=== PATIENT | male | born 1935 | race Caucasian/White ===

== ENCOUNTER 2016-07-14 10:51 | Observation (INO) | payer OTHER ==
[2016-07-14] MEDS ORDERED: diphenhydrAMINE 25 MG CAP PO ONE (11:16)
[2016-07-14] MEDS ORDERED: BACITRACIN IRRIGATION/NS 50,000 UNITS/1,000 ML BTL IRR ONE (11:16)
[2016-07-14] MEDS ORDERED: NS 1,000 ML IV ONE (11:16)
[2016-07-14] MEDS ORDERED: DIAZEPAM 5 MG TAB PO ONE (11:16)
[2016-07-14] MEDS ORDERED: ceFAZolin 2 GM/DEXTROSE 100 ML IV ONE (11:16)
--- NOTE | 2016-07-14 11:26 | CPEKG ---
Heart Rate: 49 RR Interval: 1224 P-R Interval: 180 QRSD Interval: 102 QT Interval: 456 QTC Interval: 412 P [place]: 55 QRS [place]: 36 T Wave [place]: 35 EKG Severity - ABNORMAL ECG - EKG Impression: SINUS BRADYCARDIA EKG Impression: ATRIAL PREMATURE COMPLEX EKG Impression: PROBABLE POSTERIOR INFARCT Electronically Signed By: Catherine Soliz 14-Jul-2016 16:39:02
[2016-07-14 11:44] LABS: % IMMATURE GRANULYOCYTES 0.3 % (0.0-1.1); ABSOLUTE IMMATURE GRANULOCYTES 0.02 10^3/uL (0.00-0.10); ADD DIFF? NO; ADD MORPH? NO; ADD SCAN? NO; ATYPICAL LYMPHOCYTE FLAG 0 (0-99); FRAGMENT RBC FLAG 0 (0-99); HEMATOCRIT 49.4 % (40.0-51.0); LEFT SHIFT FLG 0 (0-99); LIPEMIA HEMOLYSIS FLAG 90 (0-99); MEAN CELL HEMOGLOBIN 33.7 pg (27.9-34.1); MEAN CELL HEMOGLOBIN CONCENTR. 34.4 g/dL (32.4-36.7); MEAN CELL VOLUME 97.8 fL (81.5-99.8); MEAN PLATELET VOLUME 10.9 fL (8.7-11.7); PLATELET CLUMPS FLAG 0 (0-99); PLATELET COUNT 129 10^3/uL (150-400); RED BLOOD CELL COUNT 5.05 10^6/uL (4.40-6.38); RED CELL DISTRIBUTION WIDTH 13.1 % (11.5-15.2)
[2016-07-14] MEDS ORDERED: fentaNYL 100 MCG/2 ML INJ ONE ×2 (11:49→14:10)
[2016-07-14] MEDS ORDERED: IOPAMIDOL (ISOVUE-300) 100 ML BTL ONE ×2 (11:49→13:08)
[2016-07-14] MEDS ORDERED: LIDOCAINE 1% 30 ML SDV ONE ×2 (11:49→14:13)
[2016-07-14] MEDS ORDERED: BUPIVACAINE 0.5% 30 ML SDV ONE ×2 (11:49→14:13)
[2016-07-14] MEDS ORDERED: MIDAZOLAM 2 MG/2 ML VIAL ONE ×3 (11:49→13:45)
[2016-07-14 11:59] LABS: INR 0.96 (0.83-1.16); PROTIME(PATIENT) 12.7 SEC (12.0-15.0)
[2016-07-14 12:03] LABS: ANION GAP 9 mEq/L (8-16); CALCIUM 9.4 mg/dL (8.5-10.4); CARBON DIOXIDE 27 mEq/l (22-31); CHLORIDE 108 mEq/L (97-110); CREATININE 0.7 mg/dL (0.7-1.3); GLOMERULAR FILTRATION RATE > 60; GLUCOSE 101 mg/dL (70-100); POTASSIUM 3.9 mEq/L (3.5-5.2); SODIUM 144 mEq/L (134-144)
[2016-07-14] MEDS ORDERED: HYDROCODONE/APAP 5/325 TAB PO PRN (15:25)
[2016-07-14] MEDS ORDERED: NON-FORMULARY NEW DRUG (Ranitidine Hcl [Zantac] 150 MG) PO PRN (15:25)
[2016-07-14] MEDS ORDERED: ONDANSETRON 4 MG/2 ML VIAL ONE (15:28)
[2016-07-14] MEDS ORDERED: FAMOTIDINE 20 MG/NACL/50 ML BAG IV ONE (15:35)
--- NOTE | 2016-07-14 15:50 | CPEKG ---
Heart Rate: 60 RR Interval: 1000 P-R Interval: 136 QRSD Interval: 96 QT Interval: 456 QTC Interval: 456 QRS [place]: 45 T Wave [place]: 20 EKG Severity - ABNORMAL ECG - EKG Impression: ATRIAL-PACED RHYTHM EKG Impression: COMPARED WITH 07/14/2016 AT 11:24 A.M., ATRIAL PACING NOW SEEN Electronically Signed By: Catherine Soliz 14-Jul-2016 16:38:48
[2016-07-14] MEDS ORDERED: FAMOTIDINE 20 MG/NACL 50 ML IV ONE (16:00)
[2016-07-14] MEDS ORDERED: FAMOTIDINE 20 MG TAB PO PRN (18:11)
[2016-07-14] MEDS ORDERED: LATANOPROST 0.005% 2.5 ML OPHT DROPS EACHEYE SCH (21:00)
[2016-07-15 06:16] LABS: % IMMATURE GRANULYOCYTES 0.1 % (0.0-1.1); ABSOLUTE IMMATURE GRANULOCYTES 0.01 10^3/uL (0.00-0.10); ADD DIFF? NO; ADD MORPH? NO; ADD SCAN? NO; ATYPICAL LYMPHOCYTE FLAG 0 (0-99); FRAGMENT RBC FLAG 0 (0-99); HEMATOCRIT 45.8 % (40.0-51.0); HEMOGLOBIN 15.2 g/dL (13.7-17.5); LEFT SHIFT FLG 0 (0-99); LIPEMIA HEMOLYSIS FLAG 80 (0-99); MEAN CELL HEMOGLOBIN 33.5 pg (27.9-34.1); MEAN CELL HEMOGLOBIN CONCENTR. 33.2 g/dL (32.4-36.7); MEAN CELL VOLUME 100.9 fL (81.5-99.8); MEAN PLATELET VOLUME 10.6 fL (8.7-11.7); PLATELET CLUMPS FLAG 0 (0-99); PLATELET COUNT 119 10^3/uL (150-400); RED BLOOD CELL COUNT 4.54 10^6/uL (4.40-6.38)
[2016-07-15 06:30] LABS: ANION GAP 7 mEq/L (8-16); CALCIUM 9.1 mg/dL (8.5-10.4); CARBON DIOXIDE 26 mEq/l (22-31); CHLORIDE 109 mEq/L (97-110); CREATININE 0.6 mg/dL (0.7-1.3); GLOMERULAR FILTRATION RATE > 60; GLUCOSE 70 mg/dL (70-100); POTASSIUM 4.1 mEq/L (3.5-5.2); SODIUM 142 mEq/L (134-144)
[2016-07-15 08:14] VITALS: BP 141/72; PULSE 61; RESP 20; TEMP 97.9; O2SAT 93
[2016-07-15] MEDS ORDERED: HEPARIN/DEXTROSE 25,000 UNIT/500 ML BAG ONE (08:57)
[2016-07-15] MEDS ORDERED: ROSUVASTATIN CALCIUM 40 MG TAB PO SCH (09:00)
[2016-07-15] MEDS ORDERED: LOSARTAN POTASSIUM 50 MG TAB PO SCH (09:00)
[2016-07-15] MEDS ORDERED: ASPIRIN 325 MG TAB PO SCH (09:00)
[2016-07-15] MEDS ORDERED: NON-FORMULARY NEW DRUG (Losartan/Hydrochlorothiazide [Hyzaar 100-12.5 Tablet] 1 EACH) PO SCH (09:00)
[2016-07-15] MEDS ORDERED: HYDROCHLOROTHIAZIDE 12.5 MG CAP PO SCH (09:00)
[2016-07-15] MEDS ORDERED: amLODIPine BESYLATE 5 MG TAB PO SCH (09:00)
--- NOTE | 2016-07-15 09:08 | CPEKG ---
Heart Rate: 60 RR Interval: 1000 P-R Interval: 148 QRSD Interval: 94 QT Interval: 412 QTC Interval: 412 QRS [place]: 38 T Wave [place]: 34 EKG Severity - ABNORMAL ECG - EKG Impression: SINUS RHYTHM VERSES ATRIAL PACING. PACEMAKER SPIKES ARE DIFFICULT TO DISCERN. EKG Impression: DIFFUSE NONSPECIFIC ST ABNORMALITIES Electronically Signed By: Catherine Soliz 15-Jul-2016 09:57:13
--- NOTE | 2016-07-15 13:40 | EPPROC ---
Electrophysiology Procedure Note: Procedure done 07/14/2016 PROCEDURE PERFORMED: 1. Implantation of an A/V Pacemaker 2. Subclavian vein angiography 3. Fluoroscopy INDICATION: Chronotropic incompetence, Bradycardia, Fatigue. PROCEDURE NOTE: Patient presented to the cardiac catheterization laboratory in a fasting, post absorptive state . EP RN administered sedation. The left infraclavicular area was prepped and draped in the usual sterile fashion. Lidocaine plus bupivacaine was used for local anesthesia. Left subclavian venography was performed by injection of iodinated contrast into the left antecubital vein. This was done to assure patency of the vein and also to assess for any anatomical aberrations. Using a combination of blunt and sharp dissection and electrocautery, the dissection was carried down to the prepectoral fascia. A pocket was made in this anatomical plane. All bleeding was controlled with electrocautery. The pocket was packed with gauze soaked in antibiotic solution. Fluoroscopy was utilized during the entire procedure for venous access and placement of the leads. Using a direct stick technique the left extrathoracic axillary vein was attempted to be accessed. The first puncture was to the artery. Manual pressure was held. After this we were not able to access the vein. Subclavian angiogram x 3 showed the vein was occluded, likely related to an arterial hematoma. I asked my partner Dr. Horne to scrub in and do a cephalic vein cutdown, this was attempted but unsuccessful. At this point, we decided to place pacemaker on the right side. Right subclavian venography was performed by injection of iodinated contrast into the right antecubital vein. Right extrathoracic axillary vein was accessed with 2 sticks using the modified Seldinger technique. Placement of the guidewires into the venous system was confirmed by low-pressure blood return and also by visualizing the guidewires advancing into the inferior vena cava. A purse string suture was applied around the guidewires. Two #7 Lebanese sheaths were advanced under fluoroscopic guidance over the guidewire. An active fixation ventricular lead was advanced into the right ventricular apex and screwed in place. An active fixation atrial lead was advanced into the right atrial appendage and screwed in place. The peel away sheaths were removed. Pacing thresholds, sensing parameters and lead impedances were measured. There was no diaphragmatic stimulation at maximum output. The leads were sutured to the prepectoral fascia with 3 nonabsorbable sutures each. The pocket was again inspected for any bleeding. The leads were attached to the pacemaker securely. The pacemaker was inserted into the pocket and secured in place with a nonabsorbable suture. Fluoroscopy was performed in VINSON and OCCITAN planes to verify right-sided placement of the leads. Also fluoroscopy of the pacemaker pocket was performed. The pacemaker pocket was closed in 3 layers with absorbable monocryl sutures and milton. Appropriate dressing was applied. The patient left the cardiac catheterization laboratory in stable condition. Serial Numbers: 1. Device: Tiger Pistolronik Eluna ProMRI [id number] 2. Atrial Lead: Biotronik Solia S45 SN [id number] 3. Ventricular Lead: Biotronik Solia S53 SN [id number] Stimulation Thresholds & Impedance Measurements: 1. Atrial Lead 0.6 V 0.4 ms P 2.3 mV 529 ohm 2. Ventricular Lead 0.8 V 0.4 ms R 10.7V 702 ohm Juanito Pacing Parameters 1. Pacing mode: DDDR 2. Lower rate: 60 ppm 3. Upper tracking rate: 110 ppm 4. Upper sensor rate: 110 ppm Patient Problems: Problems Problem Status Onset Bradycardia Acute
--- NOTE | 2016-07-15 15:20 | GDS ---
[f rep st] DISCHARGE SUMMARY DISCHARGE DIAGNOSES: 1. 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 2. History of coronary artery disease. Status post multivessel stenting in 2016. 3. Sleep apnea. 4. Hypertension. 5. Dyslipidemia. 6. Diabetes. 7. Previous tobacco abuse. PROCEDURES: 1. 07/14/2016, implantation of a Biotronik AV pacemaker. 2. Serial chest x-rays. HISTORY OF PRESENT ILLNESS: Please see dictated H and P by Dr. Pham for complete details. In brief, the patient is an 81-year-old male who was diagnosed with chronotropic incompetence. He had inabil ity to mount a heart rate response to exertion, despite being off any AV christopher agents. Given his sy mptoms, he met criteria for dual-chamber pacemaker implantation. This was done on 07/14/2016. HOSPITAL COURSE BY PROBLEM: 1. Sick sinus syndrome, status post permanent pacemaker implantation. Discharge instructions given on arm precautions, as well as followup appointments. 2. CAD. His home medications were continued. 3. Pain related to permanent pacemaker implantation. A short prescription for p.o. [place] given. PHYSICAL EXAM: VITAL SIGNS: On day of discharge, blood pressure 141/72, heart rate 61, respiration s 20, O2 saturation 93% on room air. Temp of 97.9 degrees Fahrenheit. GENERAL: He was a very plea екатерина male, in no apparent distress. EYES: PERRL. HEART: Regular rate and rhythm. LUNGS: Clear. The pacemaker was implanted in the right pectoral region due to inability to cannulate the left sutton bclavian vein. LABORATORY DATA: CBC with WBC 7.64, hemoglobin 15.2, hematocrit 45.8, platelet count 119. BMP with sodium 142, potassium 4.1, chloride 109, CO2 26, BUN 18, creatinine 0.6, glucose 70. RESULTS PENDING: None. DIET: Per previous. ACTIVITY: Arm and pacer site precautions were reviewed. DISCHARGE INSTRUCTIONS: 1. Arm precautions given. 2. Continue all home medications. 3. Follow up with Dr. Marquez as scheduled. 4. Follow up with pacer clinic as scheduled. 5. Follow up with Dr. Pham as scheduled. DISCHARGE MEDICATIONS: Please see med reconciliation for complete details. He is being discharged on his home amlodipine, Crestor, Zantac, Hyzaar, latanoprost, Plavix, and aspirin. He was given a s hort prescription of [place]. /[id number]/MODL
== END 2016-07-15 12:51 | disposition home or self-care (01) ==
LOC: F2W 10:51 → FCATH 10:51 → UNDOADMOB 10:51 → EDSTATUS 13:00 → F2W 15:26
PROVIDERS: ADMIT Internal Medicine Cardiovascular Disease; ATTEND Internal Medicine Cardiovascular Disease
PROC: 02HK3JZ Insertion of Pacemaker Lead into Right Ventricle, Percutaneous Approach (ICD-10-PCS; principal; 2016-07-14)
PROC: 02H63JZ Insertion of Pacemaker Lead into Right Atrium, Percutaneous Approach (ICD-10-PCS; principal; 2016-07-14)
PROC: 0JH606Z Insertion of Pacemaker, Dual Chamber into Chest Subcutaneous Tissue and Fascia, Open Approach (ICD-10-PCS; principal; 2016-07-14)
DX: I45.89 Other specified conduction disorders (principal); I49.5 Sick sinus syndrome; R53.83 Other fatigue; I25.10 Atherosclerotic heart disease of native coronary artery without angina pectoris; I87.1 Compression of vein; G47.30 Sleep apnea, unspecified; I10 Essential (primary) hypertension; E78.5 Hyperlipidemia, unspecified; E11.9 Type 2 diabetes mellitus without complications; Z87.891 Personal history of nicotine dependence; Z95.5 Presence of coronary angioplasty implant and graft
CPT/HCPCS: 33208; 71010; 71020; 93005; C1785; C1898; J0690; J1644; J2250; J2405; J3010; Q9967